=== PATIENT | female | born 1955 | race Asian ===

== ENCOUNTER 2020-08-06 14:37 | Emergency (ER) | payer OTHER ==
[~2020-08-06] VITALS: Ht 160 cm; Wt 61.2 kg
[2020-08-06 14:44] VITALS: Ht 160 cm; Wt 61.2 kg
[2020-08-06 15:33] LABS: PLATELET COUNT 166 x10^3mcL (179-408)
[2020-08-06 16:04] LABS: CALCIUM 8.7 mg/dL (8.5-10.1); CARBON DIOXIDE 26.6 mmol/L (21-32); CHLORIDE SERUM 105 mmol/L (98-107); CREATININE SERUM 0.5 mg/dL (0.6-1.0); GFR1 > 60 mL/min; GLUCOSE SERUM 127 mg/dL (74-106); POTASSIUM SERUM 3.8 mmol/L (3.5-5.1); SODIUM SERUM 141 mmol/L (136-145)
[2020-08-06 16:09] LABS: ALBUMIN 3.6 g/dL (3.4-5.0); ALKALINE PHOSPHATASE 180 U/L (46-116); ALT/SGPT 73 U/L (14-59); AST/SGOT 51 U/L (15-37); BILIRUBIN TOTAL 0.2 mg/dL (0.20-1.00); TOTAL PROTEIN, SERUM 7.2 g/dL (6.4-8.2)
[2020-08-06 16:38] LABS: SEGMENTED NEUTROPHILS 56 % (37-75)
[2020-08-06 16:39] LABS: BAND NEUTROPHIL 10 % (0-10); MONOCYTE 2 % (0-7); rbc morphology (normal/abnorm) ABNORMAL (NORMAL)
[2020-08-06 21:23] VITALS: BP 139/89
== END 2020-08-06 21:23 | disposition home or self-care (01) ==
LOC: ED 14:37
PROVIDERS: Student in an Organized Health Care Education/Training Program
DX: U07.1 COVID-19 (principal); J12.89 Other viral pneumonia; I10 Essential (primary) hypertension
CPT/HCPCS: M0239; Q0239